=== PATIENT | female | born 1950 | race Caucasian/White ===

== ENCOUNTER → 2016-06-25 | Outpatient (CLI) | payer OTHER ==
--- NOTE | 2016-06-26 14:22 | DEXA ---
AP SPINE L1 - L4 1.022 -1.4 0.0 LT FEMUR TOTAL 0.928 -0.6 0.4 RT FEMUR TOTAL 0.911 -0.8 0.3 TOTAL BODY TOTAL OTHER DUAL FEMUR FRAX* ASSESSMENT Risk factors: History of adult fracture. 10 year probability of fracture Major osteoporotic fracture 17.4 % Hip fracture 2.7 % COMMENTS: There is low bone density of the spine and hips. FOLLOW-UP: Recommendation for the next bone density exam: 2 years. RUSSELLD
== END ==
LOC: M WHC 11:10
PROVIDERS: ATTEND Family Medicine
DX: Z13.820 Encounter for screening for osteoporosis (principal)

== ENCOUNTER → 2018-08-26 | Outpatient (REF) | payer OTHER ==
[2018-08-26 12:53] LABS: BASO # 0.1 10^3/uL (0.0-0.2); BASO % 0.7 % (0.0-1.0); EOS # 0.4 10^3/uL (0.0-0.50); EOS % 4.1 % (0.0-3.0); HEMATOCRIT 43.2 % (36.0-47.0); HEMOGLOBIN 14.4 g/dl (12.0-15.5); LYMPH # 2.6 10^3/uL (1.5-4.5); LYMPH % 29.8 % (24.0-44.0); MEAN CORPUSCULAR HEMOGLOBIN 30.5 pg (27.0-33.0); MEAN CORPUSCULAR HGB CONC 33.3 g/dl (32.0-36.5); MEAN CORPUSCULAR VOLUME 91.5 fl (80.0-96.0); MONO # 0.5 10^3/uL (0.0-0.8); MONO % 6.1 % (0.0-5.0); NEUTROPHILS # 5.2 10^3/uL (1.8-7.7); PLATELET COUNT, AUTOMATED 307 10^3/uL (150-450); RED BLOOD COUNT 4.72 10^6/uL (4.00-5.40); WHITE BLOOD COUNT 8.8 10^3/uL (4.0-10.0)
[2018-08-26 13:19] LABS: ALBUMIN 4.2 GM/DL (3.2-5.2); ALT/SGPT 17 U/L (12-78); BILIRUBIN,TOTAL 0.6 MG/DL (0.2-1.0); BLOOD UREA NITROGEN 23 MG/DL (7-18); CALCIUM LEVEL 9.2 MG/DL (8.8-10.2); CARBON DIOXIDE LEVEL 31 MEQ/L (21-32); CHLORIDE LEVEL 106 MEQ/L (98-107); CHOLESTEROL LEVEL 263 MG/DL (<200); CHOLESTEROL RISK RATIO 4.614 (<5); CREATININE FOR GFR 0.56 MG/DL (0.55-1.30); FREE T4 1.05 NG/DL (0.76-1.46); GLOMERULAR FILTRATION RATE > 60.0 (>45); GLUCOSE, FASTING 92 MG/DL (70-100); HDL CHOLESTEROL 57 MG/DL (>40); LDL CHOLESTEROL 187 MG/DL (<100); NON-HDL-C 206 MG/DL; SODIUM LEVEL 141 MEQ/L (136-145); THYROID STIMULATING HORMONE 0.799 uIU/ML (0.358-3.740); TOTAL PROTEIN 7.3 GM/DL (6.4-8.2); TRIGLYCERIDES LEVEL 95 MG/DL (<150)
[2018-08-26 13:26] LABS: TOTAL 25(OH) VITAMIN D 30.4 NG/ML (30.0-100.0)
== END ==
LOC: M SFHCADAM 10:29
PROVIDERS: ATTEND Physician Assistant Medical
DX: Z00.00 Encounter for general adult medical examination without abnormal findings (principal); Z13.220 Encounter for screening for lipoid disorders; Z13.0 Encounter for screening for diseases of the blood and blood-forming organs and certain disorders involving the immune mechanism

== ENCOUNTER → 2018-09-09 | Outpatient (CLI) | payer OTHER ==
--- NOTE | 2018-09-09 11:03 | REPMRS ---
Patient History The patient states she has not had a clinical breast exam in over a year. Patient is postmenopausal. Family history of breast cancer at age 62 in mother, breast cancer at age 32 in sister, breast cancer at age 38 in sister, breast cancer at age 38 in sister. No Hormone Replacement Therapy 3D TOMOSYNTHESIS WAS PERFORMED. Digital Woman Screen Mammo: September 09, 2018 - Exam #: [id number] Bilateral CC and MLO view(s) were taken. Technologist: Heidi Isaacs, Technologist Prior study comparison: 2017, bilateral digital mammo screening bilat, performed at [facility]. FINDINGS: The breast tissue is heterogeneously dense. This may lower the sensitivity of mammography. There has been no change in the appearance of the mammogram from the prior studies. There is a moderate amount of residual fibroglandular tissue which is fairly symmetric. There is no interval development of dominant mass, areas of architectural distortion, or clustered microcalcification typical of malignancy. Assessment: BI-RADS/ACR category 1 mammogram. Negative Mammogram. Recommendation Routine screening mammogram in 1 year (for women over age 40). This mammogram was interpreted with the aid of an FDA-approved computer-aided dectection system. Electronically Signed By: Gustavo Marsh MD 09/09/18 [id number]
--- NOTE | 2018-09-13 14:50 | DEXA ---
AP SPINE L1 - L4 1.000 -1.6 0.1 LT FEMUR TOTAL 0.913 -0.7 0.6 LT NECK 0.757 -2.0 -0.4 RT FEMUR TOTAL 0.908 -0.8 0.5 RT NECK 0.766 -2.0 -0.4 TOTAL BODY TOTAL OTHER COMMENTS: There is low bone density of the spine and hips. The density of the spine has decreased 2.2% since 06/25/2016. The density of the left hip has decreased 1.6% since 06/25/2016. The density of the right hip has decreased 0.3% since 06/25/2016. The decreased density of the spine does represent a significant change. The decreased density of the left hip does not represent a significant change. The decreased density of the right hip does not represent significant change. FOLLOW-UP: Recommendation for the next bone density exam: 2 years. AMEE
== END ==
LOC: M WHC 08:35
PROVIDERS: ATTEND Physician Assistant Medical
DX: Z12.31 Encounter for screening mammogram for malignant neoplasm of breast (principal); Z78.0 Asymptomatic menopausal state; Z80.3 Family history of malignant neoplasm of breast; M85.851 Other specified disorders of bone density and structure, right thigh; M85.852 Other specified disorders of bone density and structure, left thigh; M85.88 Other specified disorders of bone density and structure, other site

== ENCOUNTER → 2018-09-21 | Outpatient (CLI) | payer OTHER ==
--- NOTE | 2018-09-21 10:15 | REP ---
LUMBAR SPINE, SEVEN VIEWS: HISTORY: Acute back pain. There is no acute fracture or subluxation. The lumbar intervertebral discs are decreased in height consistent with disc degeneration. Osteophytes are present throughout the lumbar spine. There is narrowing of the L5-S1 facet joints. IMPRESSION: Degenerative change as described above. Electronically Signed by Diaz Freedman MD 09/21/2018 10:32 A
== END ==
LOC: M ADAMS 09:12
PROVIDERS: ATTEND Physician Assistant Medical
DX: M54.5 Low back pain (principal)

== ENCOUNTER → 2019-02-04 | Outpatient (CLI) | payer OTHER ==
[2019-02-04 13:18] LABS: ALBUMIN 3.8 GM/DL (3.2-5.2); ALT/SGPT 16 U/L (12-78); BILIRUBIN,TOTAL 0.5 MG/DL (0.2-1.0); BLOOD UREA NITROGEN 16 MG/DL (7-18); CALCIUM LEVEL 9.2 MG/DL (8.8-10.2); CARBON DIOXIDE LEVEL 27 MEQ/L (21-32); CHLORIDE LEVEL 106 MEQ/L (98-107); CHOLESTEROL LEVEL 181 MG/DL (<200); CHOLESTEROL RISK RATIO 3.415 (<5); CREATININE FOR GFR 0.63 MG/DL (0.55-1.30); GLOMERULAR FILTRATION RATE > 60.0 (>45); GLUCOSE, FASTING 99 MG/DL (70-100); HDL CHOLESTEROL 53 MG/DL (>40); LDL CHOLESTEROL 112 MG/DL (<100); NON-HDL-C 128 MG/DL; POTASSIUM SERUM 4.1 MEQ/L (3.5-5.1); SODIUM LEVEL 144 MEQ/L (136-145); TRIGLYCERIDES LEVEL 80 MG/DL (<150)
== END ==
LOC: M SMT 08:54
PROVIDERS: ATTEND Physician Assistant Medical
DX: E78.2 Mixed hyperlipidemia (principal)

== ENCOUNTER → 2019-09-14 | Outpatient (CLI) | payer OTHER ==
[2019-09-14 14:17] LABS: ALBUMIN 3.9 GM/DL (3.2-5.2); ALT/SGPT 28 U/L (12-78); BILIRUBIN,TOTAL 0.3 MG/DL (0.2-1.0); BLOOD UREA NITROGEN 16 MG/DL (7-18); CALCIUM LEVEL 9.1 MG/DL (8.8-10.2); CARBON DIOXIDE LEVEL 29 MEQ/L (21-32); CHLORIDE LEVEL 106 MEQ/L (98-107); CHOLESTEROL LEVEL 201 MG/DL (<200); CHOLESTEROL RISK RATIO 4.102 (<5); CREATININE FOR GFR 0.58 MG/DL (0.55-1.30); GLOMERULAR FILTRATION RATE > 60.0 (>45); GLUCOSE, FASTING 94 MG/DL (70-100); HDL CHOLESTEROL 49 MG/DL (>40); LDL CHOLESTEROL 98 MG/DL (<100); NON-HDL-C 152 MG/DL; POTASSIUM SERUM 4.7 MEQ/L (3.5-5.1); SODIUM LEVEL 141 MEQ/L (136-145); TOTAL PROTEIN 7.2 GM/DL (6.4-8.2); TRIGLYCERIDES LEVEL 270 MG/DL (<150)
== END ==
LOC: M PLALAB 10:38
PROVIDERS: ATTEND Physician Assistant Medical
DX: E78.2 Mixed hyperlipidemia (principal)

== ENCOUNTER → 2019-11-17 | Outpatient (CLI) | payer OTHER ==
--- NOTE | 2019-11-17 10:05 | REP ---
BILATERAL MAMMOGRAM WITH 3D TOMOSYNTHESIS: Family history of breast cancer in mother at age 62, sister with breast cancer at age 32, sister with breast cancer at age 38, a sister with breast cancer at age 38. [facility] lifetime risk of breast cancer 10.6%. Volpara density B. COMPARISON: 09/09/2018 as well as other prior exams. MLO and CC views of the bilateral breasts are performed with 3D tomosynthesis. There is moderate fibroglandular tissue bilaterally. Questionable 3-4 mm nodular opacity is seen in the anterolateral right breast. This is best appreciated on the tomographic images. Otherwise no definite nodule or architectural distortion is seen bilaterally. No clustered microcalcifications are seen bilaterally. IMPRESSION: BIRADS 0: BI-RADS/ACR category 0 mammogram, Incomplete: Need additional imaging evaluation and/or prior mammograms for comparison. ACR 0 incomplete. Possible 3-4 mm nodular opacity anterolateral right breast. Recommend spot compression views and ultrasound to further evaluate. This mammogram was interpreted with the aid of an FDA-approved computer-aided detection system. A. Negative x-ray reports should not delay biopsy if a dominant or clinically suspicious mass is present. B. Four to eight percent of cancers are not identified by x-ray. C. Adenosis and dense breasts may obscure an underlying neoplasm. The patient states that she or he has not had a clinical breast exam in over a year. The patient letter being requested is M0.
== END ==
LOC: M WHC 08:24
PROVIDERS: ATTEND Physician Assistant Medical
DX: Z12.31 Encounter for screening mammogram for malignant neoplasm of breast (principal); Z80.3 Family history of malignant neoplasm of breast; R92.8 Other abnormal and inconclusive findings on diagnostic imaging of breast

== ENCOUNTER → 2019-12-05 | Outpatient (CLI) | payer OTHER ==
--- NOTE | 2019-12-05 14:09 | REP ---
DIGITAL DIAGNOSTIC UNILATERAL RIGHT BREAST MAMMOGRAPHY WITH CAD AND FOCUSED RIGHT BREAST SONOGRAPHY: HISTORY: Screening mammography November 17, 2019 was BI-RADS category 0 because of a possible 3 mm neodensity. Diagnostic imaging was recommended. Comparison studies include September 09, 2018 and June 05, 2016. MAMMOGRAPHIC FINDINGS: Today's magnified craniocaudal view again demonstrates a well-circumscribed nodular density anteriorly and laterally where the screening study showed a small nodule. This is not seen, however, with confidence on either the true MLO or the MLO mag views. Scattered fibroglandular elements are again seen. SONOGRAPHIC FINDINGS: Heterogeneous fibroglandular background echotexture is seen. In the 9-o'clock position in the right breast, 2 cm from nipple, there is a 3 mm cyst. No suspicious sonographic finding. IMPRESSION: BIRADS 2: BI-RADS/ACR category 2 mammogram. Benign Findings. BI-RADS category 2 benign findings. Repeat screening mammography recommended in 1 year. This mammogram was interpreted with the aid of an FDA-approved computer-aided detection system. The patient letter being requested is M#1. Electronically Signed by Abelardo Marlow MD 12/05/2019 02:47 P
== END ==
LOC: M WHC 10:50
PROVIDERS: ATTEND Physician Assistant Medical
DX: Z12.39 Encounter for other screening for malignant neoplasm of breast (principal)
CPT/HCPCS: 76642; 77065; G0279

== ENCOUNTER 2020-08-05 20:51 | Observation (INO) | payer OTHER ==
[~2020-08-05] VITALS: Ht 152.4 cm; Wt 72.8 kg
[2020-08-05] MEDS ORDERED: MORPHINE 2 MG/ML 1ML VIAL (J2270) IV ONE (21:35)
[2020-08-05] MEDS ORDERED: ONDANSETRON 4MG/2ML VIAL IV ONE (21:35)
[2020-08-05 22:27] LABS: BASO % 0.3 % (0.0-1.0); EOS # 0.3 10^3/uL (0.0-0.5); EOS % 2.1 % (0.0-3.0); HEMATOCRIT 42.2 % (36.0-47.0); HEMOGLOBIN 13.8 g/dl (12.0-15.5); LYMPH # 1.7 10^3/uL (1.5-5.0); LYMPH % 13.5 % (24.0-44.0); MEAN CORPUSCULAR HEMOGLOBIN 29.6 pg (27.0-33.0); MEAN CORPUSCULAR HGB CONC 32.7 g/dl (32.0-36.5); MEAN CORPUSCULAR VOLUME 90.6 fl (80.0-96.0); MONO # 0.5 10^3/uL (0.0-0.8); MONO % 3.8 % (2.0-8.0); NEUTROPHILS # 10.1 10^3/uL (1.5-8.5); NEUTROPHILS % 79.8 % (36.0-66.0); PLATELET COUNT, AUTOMATED 274 10^3/uL (150-450); RED BLOOD COUNT 4.66 10^6/uL (4.00-5.40); WHITE BLOOD COUNT 12.6 10^3/uL (4.0-10.0)
[2020-08-05 22:56] LABS: ALT/SGPT 22 U/L (12-78); BILIRUBIN,DIRECT < 0.1 MG/DL (0.0-0.2); BILIRUBIN,TOTAL 0.2 MG/DL (0.2-1.0); CK-MB VALUE MASS < 1.0 NG/ML (<3.6); CPK CREATINE PHOSPHOKINASE 61 U/L (26-192); LIPASE 145 U/L (73-393); MB/CK RELATIVE INDEX 1.64 (< OR =4); TOTAL PROTEIN 7.4 GM/DL (6.4-8.2); TROPONIN I < 0.02 NG/ML (< 0.10)
--- NOTE | 2020-08-05 23:03 | REPVR ---
PROCEDURE INFORMATION: Exam: US Abdomen, Limited; Right Upper Quadrant Exam date and time: 08/05/20 (9:48pm) Age: 69 years old Clinical indication: Epigastric pain TECHNIQUE: Imaging protocol: US abdomen. Real time ultrasound with image documentation. Limited examination focused on the right upper quadrant. COMPARISON: No relevant prior studies available FINDINGS: The liver is normal in size (17.0 cm length), with fatty infiltration (echogenic texture). Thickened gallbladder wall (6 mm thickness). Echogenic gallstone (2.2 cm size). Possible focal adenomyomatosis at the anterior gallbladder wall. No pericholecystic fluid is appreciated. The sonographic Sigala's sign is reported to be (+). The CBD is not dilated (3.2 mm diameter). The pancreas appears unremarkable. The right kidney measures 9.7 cm in length, with no hydronephrosis appreciated. Right midpole renal cyst (2.7 x 2.7 x 3.8 cm size) (3.4 cm avg. size). No ascites is seen. IMPRESSION: Possible acute cholecystitis. Needs correlation. Large echogenic gallstone (2.2 cm size). Thickened gallbladder wall. The sonographic Sigala's sign is reported to be (+). No biliary dilatation. Possible focal adenomyomatosis (benign) at the anterior gallbladder wall. Electronically signed by: Roxana Camilo On 08/05/2020 23:03:28 PM
[2020-08-05] MEDS ORDERED: ISOVUE-370 76% 100ML VIAL As Ordered ONE (23:04)
--- NOTE | 2020-08-06 | REPVR ---
PROCEDURE INFORMATION: Exam: CT Chest With Contrast; Diagnostic Exam date and time: 08/05/2020 11:11 PM Age: 69 years old Clinical indication: Pain; Other: Left scapular; Additional info: Epigastric pain, L scapular pain TECHNIQUE: Imaging protocol: Diagnostic computed tomography of the chest with contrast. Radiation optimization: All CT scans at this facility use at least one of these dose optimization techniques: automated exposure control; mA and/or kV adjustment per patient size (includes targeted exams where dose is matched to clinical indication); or iterative reconstruction. Contrast material: ISOVUE 370; Contrast volume: 100 ml; Contrast route: INTRAVENOUS (IV); COMPARISON: No relevant prior studies available. FINDINGS: Lungs: There is mild atelectasis or infiltrate left mid lung field. Pleural spaces: There is no evidence of pneumothorax and no evidence of pleural effusion. Heart: The heart is normal in size and there is no pericardial effusion. Pulmonary arteries: There is opacification of the pulmonary arteries with no evidence of pulmonary embolus. Aorta: Unremarkable. No aortic aneurysm. Lymph nodes: Unremarkable. No enlarged lymph nodes. Bones/joints: There is a large posterior disc osteophyte complex L1-L2 causing severe impression on the thecal sac. Soft tissues: Unremarkable. IMPRESSION: 1. No evidence of pulmonary embolus. 2. Mild atelectasis or infiltrate left mid lung field. 3. Large posterior disc osteophyte L1-L2 causing severe impression on the thecal sac. Electronically signed by: Carlos Langford On 08/06/2020 00:00:41 AM
--- NOTE | 2020-08-06 00:16 | REPVR ---
PROCEDURE INFORMATION: Exam: CT Abdomen And Pelvis With Contrast Exam date and time: 08/05/2020 11:21 PM Age: 69 years old Clinical indication: Abdominal pain; Epigastric; Additional info: Epigastric pain, L scapular pain TECHNIQUE: Imaging protocol: Computed tomography of the abdomen and pelvis with contrast. Radiation optimization: All CT scans at this facility use at least one of these dose optimization techniques: automated exposure control; mA and/or kV adjustment per patient size (includes targeted exams where dose is matched to clinical indication); or iterative reconstruction. Contrast material: ISOVUE 370; Contrast volume: 100 ml; Contrast route: INTRAVENOUS (IV); COMPARISON: GALLBLADDER US 08/05/2020 9:47 PM FINDINGS: Liver: Normal appearing liver. Gallbladder and bile ducts: There is a 2.5 cm calcified stone at the neck of the gallbladder. There are multiple tiny cystic areas of the distal aspect of the gallbladder possibly adenomyomatosis. Pancreas: Normal pancreas. Spleen: Normal appearing spleen. Adrenal glands: Small low-density nodule left adrenal gland probably benign. Kidneys and ureters: There is enhancement of both kidneys. There is also a moderate-sized exophytic cyst of the right kidney. There is no evidence of hydronephrosis or obstruction of the right or left ureter. Stomach and bowel: The cecum is in the right lower quadrant and there is no evidence of inflammation associated with these cecum. Intraperitoneal space: There is no evidence of pneumoperitoneum. There is no evidence of free fluid. Vasculature: There is opacification of the celiac artery. There is opacification of the SMA however there is calcification and narrowing at the origin of the SMA. Urinary bladder: Normal urinary bladder. Reproductive: Normal size uterus. Bones/joints: Large posterior disc osteophyte complex L1-L2 causing severe impression on the thecal sac. Soft tissues: Unremarkable. IMPRESSION: 2.5 cm large calcified gallstone within the neck of the gallbladder. Conglomerate of small cystic areas at the distal most aspect of the gallbladder may be adenomyomatosis or small cysts within the gallbladder wall. If there is pain in this area or concern a HIDA scan might be considered. Large posterior disc osteophyte complex L1-L2 causing severe impression on the thecal sac. Electronically signed by: Carlos Langford On 08/06/2020 00:16:39 AM
[2020-08-06] MEDS ORDERED: MORPHINE 2 MG/ML 1ML VIAL (J2270) IV PRN ×2 (00:30)
[2020-08-06] MEDS ORDERED: ONDANSETRON 4MG/2ML VIAL IV PRN (00:30)
[2020-08-06] MEDS ORDERED: THERTAB52 PO (00:46)
[2020-08-06] MEDS ORDERED: SIMV20TA22 PO (00:46)
[2020-08-06] MEDS ORDERED: OMEG10002 PO (00:46)
[2020-08-06] MEDS: NS 1,000 ML IV SCH ×2 (01:19→08:24)
[2020-08-06] MEDS: KETOROLAC 30 MG/ML 1ML VIAL IV SCH ×3 (01:20→14:00)
[2020-08-06] MEDS: PIPERACILLIN/TAZOBACTAM SOD 3.375 GM in D5W MINI-BAG PLUS 50 ML IV SCH ×3 (01:22→14:00)
[2020-08-06 01:46] LABS: RSV AMPLIFICATION NEGATIVE (NEGATIVE)
[2020-08-06 03:15] VITALS: BP 122/69
--- NOTE | 2020-08-06 06:32 | ECGEPIP ---
[facility] - ED Test Date: 2020-08-05 Pat Name: LEONORA ROGER Department: Room: - Gender: Female Wrong Address Clerk: SB : 1950 Requested By: TJ Philippe PA-C Order Number: [id number] Reading MD: Alex Loyd Measurements Intervals [place] Rate: 70 P: 15 WI: 146 QRS: 2 QRSD: 80 T: 12 QT: 410 QTc: 442 Interpretive Statements Normal sinus rhythm Delayed R wave progression NONSPECIFIC ST T WAVE CHANGES NO PRIOR ECG FOR COMPARISON Electronically Signed on 08-06-2020 6:31:55 EST by Alex Loyd
[2020-08-06] MEDS ORDERED: PANTOPRAZOLE 40MG VIAL (C9113 PER 1) IV SCH (09:00)
[2020-08-06 09:54] LABS: HEMATOCRIT 38.3 % (36.0-47.0); HEMOGLOBIN 12.4 g/dl (12.0-15.5); MEAN CORPUSCULAR HEMOGLOBIN 29.8 pg (27.0-33.0); MEAN CORPUSCULAR HGB CONC 32.4 g/dl (32.0-36.5); MEAN CORPUSCULAR VOLUME 92.1 fl (80.0-96.0); PLATELET COUNT, AUTOMATED 245 10^3/uL (150-450); RED BLOOD COUNT 4.16 10^6/uL (4.00-5.40); WHITE BLOOD COUNT 9.7 10^3/uL (4.0-10.0)
[2020-08-06 10:36] LABS: ALBUMIN 3.3 GM/DL (3.2-5.2); ALT/SGPT 18 U/L (12-78); BILIRUBIN,TOTAL 0.3 MG/DL (0.2-1.0); BLOOD UREA NITROGEN 17 MG/DL (7-18); CALCIUM LEVEL 8.5 MG/DL (8.8-10.2); CARBON DIOXIDE LEVEL 27 MEQ/L (21-32); CHLORIDE LEVEL 110 MEQ/L (98-107); CREATININE FOR GFR 0.58 MG/DL (0.55-1.30); GLOMERULAR FILTRATION RATE > 60.0 (>45); GLUCOSE, FASTING 91 MG/DL (70-100); POTASSIUM SERUM 3.6 MEQ/L (3.5-5.1); SODIUM LEVEL 144 MEQ/L (136-145)
--- NOTE | 2020-08-06 11:16 | HPEPDOC ---
General Surgery H&P Date of Admission Aug 06, 2020 History and Physical General Surgery Dr Mathias. HISTORY OF PRESENT ILLNESS: The patient is a 69-year-old female who presented to the emergency department at approximately 205008/05/20. The patient reported abdominal pain began after eating dinner and gradually had been worsening. She described this as crampy pain in the right upper abdomen. She had nausea and vomiting however no diarrhea. No fevers or chills. Gallbladder ultrasound indicated possible acute cholecystitis with large ech ogenic gallstone, thickened gallbladder wall, common bile duct was not dilated. CT abdomen/pelvis indicated 2.5 cm calcified stone at the neck of the gallbladder with small cystic areas. Observation admission was arranged overnight for acute cholecystitis. ALLERGIES: Please see below. HOME MEDICATIONS: Please see below. PAST MEDICAL HISTORY: Dyslipidemia Obesity. BMI 31.3. PAST SURGICAL HISTORY: Denies PERSONAL/SOCIAL HISTORY: Former smoker Family history Father , lung cancer. Mother , breast cancer and dementia. History of familial tremor. REVIEW OF SYSTEMS: As noted in HPI otherwise 10 point review of systems unremarkable. PHYSICAL EXAMINATION: VITAL SIGNS: Please see below. GENERAL APPEARANCE: Awake, alert, oriented. Truly resting in bed. HEENT: Normocephalic, atraumatic. [place] palpebral conjunctivae. Anicteric sclerae. Lips moist CHEST: Normal respiratory motion/effort. NECK: Supple. No thyromegaly. LUNGS: Lung sounds are clear to auscultation bilaterally. No wheezing appreciated. HEART: Heart rate and rhythm are regular with no murmurs. ABDOMEN: Abdomen is obese, soft, slightly rounded. Nondistended. The pt has mild tenderness in the RUQ, no rebound or guarding. No grimacing with palpation. No rebound tenderness. No masses appreciated. SKIN: Warm, moist. EXTREMITIES: Well perfused, No edema.. LABORATORY DATA: Please see below. MICROBIOLOGY: Please see below. IMAGING: PROCEDURE INFORMATION: Exam: US Abdomen, Limited; Right Upper Quadrant Exam date and time: 08/05/20 (9:48pm) FINDINGS: The liver is normal in size (17.0 cm length), with fatty infiltration (echogenic texture). Thickened gallbladder wall (6 mm thickness). Echogenic gallstone (2.2 cm size). Possible focal adenomyomatosis at the anterior gallbladder wall. No pericholecystic fluid is appreciated. The sonographic Sigala's sign is reported to be (+). The CBD is not dilated (3.2 mm diameter). The pancreas appears unremarkable. The right kidney measures 9.7 cm in length, with no hydronephrosis appreciated. Right midpole renal cyst (2.7 x 2.7 x 3.8 cm size) (3.4 cm avg. size). No ascites is seen. IMPRESSION: Possible acute cholecystitis. Needs correlation. Large echogenic gallstone (2.2 cm size). Thickened gallbladder wall. The sonographic Sigala's sign is reported to be (+). No biliary dilatation. Possible focal adenomyomatosis (benign) at the anterior gallbladder wall. Electronically signed by: Roxana Camilo On 08/05/2020 23:03:[address] A/P IMPRESSION: 2.5 cm large calcified gallstone within the neck of the gallbladder. Conglomerate of small cystic areas at the distal most aspect of the gallbladder may be adenomyomatosis or small cysts within the gallbladder wall. If there is pain in this area or concern a HIDA scan might be considered. Large posterior disc osteophyte complex L1-L2 causing severe impression on the thecal sac. Electronically signed by: Carlos Langford On 08/06/2020 00:16:39 AM IMPRESSION AND PLAN: The patient is a 69-year-old female who was admitted overnight with acute cholecystitis. Resolving cholecystitis. The patient was admitted to observation overnight. Nothing by mouth, IV Zosyn. The patient received 1 dose of morphine in the emergency department but has not used any further. Used one dose of Toradol this morning. This morning, she states she is feeling much better. She has some mild tenderness in the right upper quadrant but mostly the area just feels sore. Denies nausea or vomiting. Patient is afebrile. CBC this a.m. indicates WBC 9.7 which is decreased from 12.6. Plan is to try clear liquids for breakfast and progress diet at lunch to low- fat. If she tolerates lunch, tentative plan to discharge home with oral antibiotics Augmentin 500 mg by mouth 3 times a day. The patient can continue to use Tylenol or Advil as needed for pain. Plan for outpatient follow-up with Dr. Mathias next week to consider outpatient laparoscopic cholecystectomy. Vital Signs Vital Signs Date Time Temp Pulse Resp B/P (MAP) Pulse Ox O2 Delivery O2 Flow Rate FiO2 08/06/20 03:15 98.0 68 18 122/69 (86) 96 Room Air I&Os I&O- Last 24 Hours up to 6 AM 08/06/20 06:00 Intake Total 230 ml Balance 230 ml Laboratory Data Labs 24H Laboratory Tests 2 08/05/20 22:20: Immature Granulocyte % (Auto) 0.5, Neutrophils (%) (Auto) 79.8H, Lymphocytes (%) (Auto) 13.5L, Monocytes (%) (Auto) 3.8, Eosinophils (%) (Auto) 2.1, Basophils (%) (Auto) 0.3, Neutrophils # (Auto) 10.1H, Lymphocytes # (Auto) 1.7, Monocytes # (Auto) 0.5, Eosinophils # (Auto) 0.3, Basophils # (Auto) 0.0, Nucleated Red Blood Cells % (auto) 0.0, Total Bilirubin 0.2, Direct Bilirubin < 0.1, Aspartate Amino Transf (AST/SGOT) 14, Alanine Aminotransferase (ALT/SGPT) 22, Alkaline Phosphatase 91, Total Creatine Kinase 61, Creatine Kinase MB < 1.0, Creatine Kin ase MB Relative Index 1.64, Troponin I < 0.02, Total Protein 7.4, Albumin 4.0, Albumin/Globulin Ratio 1.2, Lipase 145 08/05/20 22:27: POC Glucose (Misc Panel) 140H, POC Sodium (Misc Panel) 141, POC Potassium (Misc Panel) 3.6, POC Chloride (Misc Panel) 103, POC Total CO2 (Misc Panel) 29.0H, POC Blood Urea Nitrogen (Misc Panel 19, POC Ionized Calcium (Misc Panel) 4.5, POC Creatinine (Misc Panel) 0.6, POC Hematocrit (Misc Panel) 41.0 08/06/20 00:34: Coronavirus (COVID-19)(PCR) NEGATIVE, Influenza Type A (RT-PCR) NEGATIVE, Influenza Type B (RT-PCR) NEGATIVE, Respiratory Syncytial Virus (PCR) NEGATIVE 08/06/20 08:56: Nucleated Red Blood Cells % (auto) 0.0, Total Bilirubin 0.3, Aspartate Amino Transf (AST/SGOT) 8, Alanine Aminotransferase (ALT/SGPT) 18, Alkaline Phosphatase 73, Total Protein 6.0L, Albumin 3.3, Albumin/Globulin Ratio 1.2, Anion Gap 7L, Glomerular Filtration Rate > 60.0, Calcium Level 8.5L CBC/BMP Laboratory Tests 08/05/20 22:20 08/06/20 08:56 Home Medications Scheduled Multivitamin,Therapeutic (Thera-Tabs) 1 Each Tablet, 1 TAB PO DAILY, (Reported) Granite-3/Dha/Epa/Fish Oil (Fish Oil 1,000 mg Softgel) 1 Each Capsule, 1 CAP PO DAILY, (Reported) Simvastatin (Simvastatin) 20 Mg Tablet, 20 MG PO QHS, (Reported) Allergies Coded Allergies: No Known Allergies (Unverified , 06/14/15) A-FIB/CHADSVASC A-FIB History Current/History of A-Fib/PAF?: No Oliva Rincon Aug 06, 2020 11:16
[2020-08-06] MEDS ORDERED: AUGM500T34 PO (13:41)
[2020-08-06 14:00] VITALS: BP 145/65
== END 2020-08-06 14:50 | disposition home or self-care (01) ==
LOC: M ED 20:51 → M ED INP 20:52 → ENRESERV 08-06 02:30 → M MS5PR 08-06 03:10
PROVIDERS: ADMIT Surgery; ATTEND Surgery
DX: K81.0 Acute cholecystitis (principal); E78.49 Other hyperlipidemia; K21.9 Gastro-esophageal reflux disease without esophagitis; Z79.899 Other long term (current) drug therapy
CPT/HCPCS: 36415; 71260; 74177; 76705; 80047; 80053; 80076; 82550; 82553; 83690; 84484; 85025; 85027; 87631; 93005; 96361; 96365; 96366; 96375; 99284; C9113; J1885; J2270; J2405; J2543; Q9967

== ENCOUNTER → 2020-09-06 | Outpatient (CLI) | payer OTHER ==
[~2020-09-06] MED LIST: AUGM500T34 PO; OMEG10002 PO; SIMV20TA22 PO; THERTAB52 PO
== END ==
LOC: M LABSMTC 10:06
PROVIDERS: ATTEND Anesthesiology
DX: Z01.812 Encounter for preprocedural laboratory examination (principal); Z20.822 Contact with and (suspected) exposure to COVID-19

== ENCOUNTER 2020-09-11 10:37 | Day surgery (SDC) | payer OTHER ==
[~2020-09-11] VITALS: Ht 152.4 cm; Wt 68.2 kg
[~2020-09-11 10:37] MED LIST changes: +LR 1,000 ML IV ONE; +ceFAZolin SOD 1 GM in D5W MINI-BAG PLUS 50 ML IV ONE
[2020-09-11] MEDS ORDERED: MIDAZOLAM INJ 2MG/2ML VIAL (J2250 PER 1MG) As Ordered ONE (10:41)
[2020-09-11] MEDS ORDERED: dexameTHASONE 4 MG/ML 1ML VIAL (J1100 PER 1MG) As Ordered ONE (10:41)
[2020-09-11] MEDS ORDERED: ACETAMINOPHEN 1000MG 100ML IV BTL (OFIRMEV) (J0131 PER 10MG) As Ordered ONE (10:41)
[2020-09-11] MEDS ORDERED: fentaNYL 100 MCG/2 ML INJECTION (J3010) As Ordered ONE (10:41)
[2020-09-11] MEDS ORDERED: ONDANSETRON 4MG/2ML VIAL As Ordered ONE ×2 (10:41→15:22)
[2020-09-11] MEDS ORDERED: KETOROLAC 60MG 2ML VIAL As Ordered ONE (10:41)
[2020-09-11] MEDS ORDERED: ROCURONIUM BROMIDE 50 MG/5 ML VIAL As Ordered ONE (10:41)
[2020-09-11] MEDS ORDERED: propofoL 200 MG/20 ML VIAL As Ordered ONE (10:41)
[2020-09-11] MEDS ORDERED: LIDOCAINE 2% 100MG/5ML SDV (FOR ANES.) As Ordered ONE (10:41)
[2020-09-11] MEDS ORDERED: SUGAMMADEX SODIUM 500 MG/5 ML VIAL (BRIDION) As Ordered ONE (10:42)
[2020-09-11] MEDS ORDERED: BUPIVACAINE/EPIN 0.25% 30 ML VIAL As Ordered ONE (10:53)
[2020-09-11] MEDS ORDERED: ePHEDrine SULFATE 25 MG/5 ML(5MG/ML) SYRINGE As Ordered ONE (12:06)
[2020-09-11] MEDS ORDERED: HYDROmorphone HCL 2 MG/ML 1ML VIAL (J1170) As Ordered ONE (12:16)
[2020-09-11] MEDS ORDERED: LABETALOL 100MG/20ML VIAL As Ordered ONE (12:40)
[2020-09-11] MEDS ORDERED: LR 1,000 ML IV SCH (13:30)
[2020-09-11] MEDS ORDERED: NORCO, ANEXSIA 5/325MG TABLET (HYDROcodone/ACETAMINOPHEN) PO PRN (13:30)
[2020-09-11] MEDS ORDERED: NS 1,000 ML IV SCH (13:30)
[2020-09-11] MEDS ORDERED: fentaNYL 100 MCG/2 ML INJECTION (J3010) IV PRN (13:30)
[2020-09-11] MEDS ORDERED: ONDANSETRON 4MG/2ML VIAL IV PRN (13:30)
[2020-09-11] MEDS ORDERED: oxyCODONE 5MG TAB PO PRN (13:30)
[2020-09-11] MEDS: NALOXONE INJ 0.4MG/1ML VIAL (J2310 PER 1MG) IV PRN ×2 (14:34→14:46)
[2020-09-11] MEDS ORDERED: NALOXONE INJ 0.4MG/1ML VIAL (J2310 PER 1MG) As Ordered ONE (15:22)
[2020-09-11 15:46] VITALS: BP 164/72
== END 2020-09-11 16:18 | disposition home or self-care (01) ==
LOC: M SDC 10:37
PROVIDERS: ATTEND Surgery
DX: K81.0 Acute cholecystitis (principal); E78.5 Hyperlipidemia, unspecified; K21.9 Gastro-esophageal reflux disease without esophagitis; Z79.899 Other long term (current) drug therapy
CPT/HCPCS: 47562; 88304; J0131; J0690; J1100; J1170; J1885; J2250; J2310; J2405; J3010

== ENCOUNTER → 2021-09-09 | Outpatient (REF) | payer MEDICARE ==
[~2021-09-09] MED LIST changes: -LR 1,000 ML IV ONE; -ceFAZolin SOD 1 GM in D5W MINI-BAG PLUS 50 ML IV ONE
[2021-09-09 13:07] LABS: APPEARANCE, URINE CLEAR (CLEAR); BACTERIA, URINE AUTO NEGATIVE (NEGATIVE); BILIRUBIN, URINE AUTO NEGATIVE (NEGATIVE); BLOOD, URINE BLOOD 1+ (NEGATIVE); COLOR, URINE STRAW (YELLOW); GLUCOSE, URINE (UA) AUTO NEGATIVE (NEGATIVE); KETONE, URINE AUTO NEGATIVE (NEGATIVE); LEUKOCYTE ESTERASE, URINE AUTO NEGATIVE (NEGATIVE); NITRITE, URINE AUTO NEGATIVE (NEGATIVE); PROTEIN, URINE AUTO NEGATIVE (NEGATIVE); RBC, URINE AUTO 0 /HPF (0-3); SPECIFIC GRAVITY URINE AUTO 1.004 (1.002-1.035); SQUAMOUS EPITHELIAL CELL UR AU 0 /HPF (0-6); UROBILINOGEN, URINE AUTO 0.2 mg/dL (0.0-2.0); WBC, URINE AUTO 0 /HPF (0-3)
[2021-09-09 13:15] LABS: BASO # 0.1 10^3/uL (0.0-0.2); BASO % 0.5 % (0.0-1.0); EOS # 0.4 10^3/uL (0.0-0.5); EOS % 4.5 % (0.0-3.0); HEMATOCRIT 45.6 % (36.0-47.0); HEMOGLOBIN 15.4 g/dl (12.0-15.5); LYMPH # 2.5 10^3/uL (1.5-5.0); LYMPH % 25.8 % (24.0-44.0); MEAN CORPUSCULAR HEMOGLOBIN 30.1 pg (27.0-33.0); MEAN CORPUSCULAR HGB CONC 33.8 g/dl (32.0-36.5); MEAN CORPUSCULAR VOLUME 89.1 fl (80.0-96.0); MONO # 0.6 10^3/uL (0.0-0.8); MONO % 5.8 % (2.0-8.0); NEUTROPHILS # 6.1 10^3/uL (1.5-8.5); NEUTROPHILS % 63.1 % (36.0-66.0); PLATELET COUNT, AUTOMATED 300 10^3/uL (150-450); RED BLOOD COUNT 5.12 10^6/uL (4.00-5.40); WHITE BLOOD COUNT 9.6 10^3/uL (4.0-10.0)
[2021-09-09 14:29] LABS: ALBUMIN 4.1 GM/DL (3.2-5.2); ALT/SGPT 27 U/L (12-78); BILIRUBIN,TOTAL 0.5 MG/DL (0.2-1.0); BLOOD UREA NITROGEN 15 MG/DL (7-18); CALCIUM LEVEL 9.6 MG/DL (8.8-10.2); CARBON DIOXIDE LEVEL 30 MEQ/L (21-32); CHLORIDE LEVEL 103 MEQ/L (98-107); CHOLESTEROL LEVEL 177 MG/DL (<200); CHOLESTEROL RISK RATIO 3.218 (<5); CREATININE FOR GFR 0.79 MG/DL (0.55-1.30); GLOMERULAR FILTRATION RATE > 60.0 (>39); GLUCOSE, FASTING 101 MG/DL (70-100); HDL CHOLESTEROL 55 MG/DL (>40); LDL CHOLESTEROL 101 MG/DL (<100); NON-HDL-C 122 MG/DL; POTASSIUM SERUM 4.4 MEQ/L (3.5-5.1); SODIUM LEVEL 139 MEQ/L (136-145); TOTAL 25(OH) VITAMIN D 40.7 NG/ML (30.0-100.0); TOTAL PROTEIN 7.5 GM/DL (6.4-8.2); TRIGLYCERIDES LEVEL 103 MG/DL (<150)
== END ==
LOC: M SFHCADAM 07:56
PROVIDERS: ATTEND Physician Assistant Medical
DX: E78.2 Mixed hyperlipidemia (principal); G89.29 Other chronic pain; M54.6 Pain in thoracic spine

== ENCOUNTER → 2021-10-03 | Outpatient (CLI) | payer MEDICARE | LOC: M CARPUL 10:38 | PROVIDERS: ATTEND Physician Assistant Medical | DX: I10 Essential (primary) hypertension (principal); R60.1 Generalized edema; I35.8 Other nonrheumatic aortic valve disorders ==

== ENCOUNTER → 2021-11-15 | Outpatient (CLI) | payer MEDICARE | LOC: M WHC 09-24 07:11 | PROVIDERS: ATTEND Physician Assistant Medical | DX: Z12.31 Encounter for screening mammogram for malignant neoplasm of breast (principal); Z80.3 Family history of malignant neoplasm of breast ==

== ENCOUNTER → 2022-10-07 | Outpatient (REF) | payer OTHER ==
[2022-10-07 13:05] LABS: ALBUMIN 4.3 G/DL (3.2-5.2); ALKALINE PHOSPHATASE 72 U/L (46-116); ALT/SGPT 26 U/L (7.0-40); AST/SGOT 22 U/L (<34); BILIRUBIN,TOTAL 0.5 MG/DL (0.3-1.2); BLOOD UREA NITROGEN 15 MG/DL (9-23); CALCIUM LEVEL 9.6 MG/DL (8.3-10.6); CARBON DIOXIDE LEVEL 33 MMOL/L (20-31); CHLORIDE LEVEL 103 MMOL/L (98-107); CHOLESTEROL LEVEL 172 MG/DL (<200); CHOLESTEROL RISK RATIO 3.26 (<5); CREATININE FOR GFR 0.61 MG/DL (0.55-1.30); GLOMERULAR FILTRATION RATE > 60.0 (>39); GLUCOSE, FASTING 102 MG/DL (74-106); HDL CHOLESTEROL 52.6 MG/DL (>40); NON-HDL-C 119.4 MG/DL; POTASSIUM SERUM 4.8 MMOL/L (3.5-5.1); SODIUM LEVEL 142 MMOL/L (136-145); THYROID STIMULATING HORMONE 1.177 uIU/ML (0.55-4.78); TOTAL PROTEIN 7.2 G/DL (5.7-8.2); TRIGLYCERIDES LEVEL 87 MG/DL (<150)
== END ==
LOC: M SFHCADAM 09:03
PROVIDERS: ATTEND Physician Assistant Medical
DX: E78.2 Mixed hyperlipidemia (principal); I10 Essential (primary) hypertension

== ENCOUNTER → 2022-11-24 | Day surgery (SDC) | payer OTHER ==
[~2022-11-24] VITALS: Ht 152.4 cm; Wt 71.6 kg
[~2022-11-24] MED LIST changes: +CHLO25TA PO; +CYAN500T14 PO; +LIDOCAINE 2% 100MG/5ML SDV (FOR ANES.) As Ordered ONE; +NS 1,000 ML IV ONE; +VITA100093 PO; +propofoL 200 MG/20 ML VIAL As Ordered ONE
[2022-11-24 13:32] VITALS: BP 164/83; O2SAT 98
== END | disposition home or self-care (01) ==
LOC: M OPP 10:20
PROVIDERS: ATTEND Internal Medicine Gastroenterology
DX: Z86.010 Personal history of colon polyps (principal); K63.5 Polyp of colon; K64.0 First degree hemorrhoids; Z79.899 Other long term (current) drug therapy

== ENCOUNTER → 2023-04-29 | Outpatient (CLI) | payer OTHER ==
[~2023-04-29] MED LIST changes: -LIDOCAINE 2% 100MG/5ML SDV (FOR ANES.) As Ordered ONE; -NS 1,000 ML IV ONE; -propofoL 200 MG/20 ML VIAL As Ordered ONE
== END ==
LOC: M ADAMS 10:00
PROVIDERS: ATTEND Family Medicine
DX: M70.62 Trochanteric bursitis, left hip (principal)

== ENCOUNTER → 2023-10-12 | Outpatient (REF) | payer MEDICARE ==
[2023-10-12 12:51] LABS: BASO # 0.1 10^3/uL (0.0-0.2); BASO % 0.6 % (0.0-1.0); EOS # 0.4 10^3/uL (0.0-0.5); EOS % 3.8 % (0.0-3.0); HEMATOCRIT 42.9 % (36.0-47.0); HEMOGLOBIN 14.6 g/dl (12.0-15.5); LYMPH % 29.4 % (24.0-44.0); MEAN CORPUSCULAR HEMOGLOBIN 31.1 pg (27.0-33.0); MEAN CORPUSCULAR VOLUME 91.5 fl (80.0-96.0); MONO # 0.6 10^3/uL (0.0-0.8); MONO % 5.7 % (2.0-8.0); NEUTROPHILS % 60.3 % (36.0-66.0); PLATELET COUNT, AUTOMATED 294 10^3/uL (150-450); RED BLOOD COUNT 4.69 10^6/uL (4.00-5.40)
[2023-10-12 12:58] LABS: ALBUMIN 3.9 G/DL (3.2-5.2); ALKALINE PHOSPHATASE 74 U/L (46-116); ALT/SGPT 27 U/L (7.0-40); AST/SGOT 20 U/L (<34); BILIRUBIN,TOTAL 0.6 MG/DL (0.3-1.2); BLOOD UREA NITROGEN 19 MG/DL (9-23); CALCIUM LEVEL 9.4 MG/DL (8.3-10.6); CARBON DIOXIDE LEVEL 31 MMOL/L (20-31); CHLORIDE LEVEL 101 MMOL/L (98-107); CHOLESTEROL LEVEL 257 MG/DL (<200); CHOLESTEROL RISK RATIO 4.68 (<5); CREATININE FOR GFR 0.66 MG/DL (0.55-1.30); GLOMERULAR FILTRATION RATE > 60.0 (>39); GLUCOSE, FASTING 100 MG/DL (74-106); HDL CHOLESTEROL 54.9 MG/DL (>40); LDL CHOLESTEROL 180.1 MG/DL (<100); NON-HDL-C 202.1 MG/DL; POTASSIUM SERUM 3.9 MMOL/L (3.5-5.1); SODIUM LEVEL 137 MMOL/L (136-145); TOTAL PROTEIN 6.8 G/DL (5.7-8.2); TRIGLYCERIDES LEVEL 110 MG/DL (<150)
[2023-10-12 13:00] LABS: THYROID STIMULATING HORMONE 1.306 uIU/ML (0.55-4.78); TOTAL 25(OH) VITAMIN D 37.2 NG/ML (20.0-100.0)
[2023-10-12 13:14] LABS: CREATININE, URINE 14.4 MG/DL; MALB URINE SIEMENS < 3.0 MG/L; MAU/CREAT RATIO 20.8 MCG/MG (0.0-30.0)
[2023-10-12 13:19] LABS: HEMOGLOBIN A1c 5.3 % (4.0-6.0)
== END ==
LOC: M SFHCADAM 07:59
PROVIDERS: ATTEND Physician Assistant Medical
DX: I10 Essential (primary) hypertension (principal); E78.2 Mixed hyperlipidemia; R73.01 Impaired fasting glucose; Z79.899 Other long term (current) drug therapy

== ENCOUNTER → 2023-10-14 | Outpatient (REF) | payer MEDICARE ==
[2023-10-14 14:13] LABS: APPEARANCE, URINE CLEAR (CLEAR); BACTERIA, URINE AUTO NEGATIVE (NEGATIVE); BILIRUBIN, URINE AUTO NEGATIVE (NEGATIVE); BLOOD, URINE BLOOD 1+ (NEGATIVE); COLOR, URINE YELLOW (YELLOW); GLUCOSE, URINE (UA) AUTO NEGATIVE (NEGATIVE); KETONE, URINE AUTO NEGATIVE (NEGATIVE); LEUKOCYTE ESTERASE, URINE AUTO NEGATIVE (NEGATIVE); NITRITE, URINE AUTO NEGATIVE (NEGATIVE); PROTEIN, URINE AUTO NEGATIVE (NEGATIVE); RBC, URINE AUTO 0 /HPF (0-3); SPECIFIC GRAVITY URINE AUTO 1.016 (1.002-1.035); SQUAMOUS EPITHELIAL CELL UR AU 1 /HPF (0-6); UROBILINOGEN, URINE AUTO 0.2 mg/dL (0.0-2.0); WBC, URINE AUTO 0 /HPF (0-3)
== END ==
LOC: M SFHCADAM 09:48
PROVIDERS: ATTEND Physician Assistant Medical
DX: R39.15 Urgency of urination (principal)

== ENCOUNTER → 2023-10-30 | Outpatient (CLI) | payer MEDICARE | LOC: M WHC 11:53 | PROVIDERS: ATTEND Physician Assistant Medical | DX: R39.15 Urgency of urination (principal) ==

== ENCOUNTER → 2023-11-04 | Outpatient (CLI) | payer MEDICARE | LOC: M WHC 07:03 | PROVIDERS: ATTEND Physician Assistant Medical | DX: Z12.31 Encounter for screening mammogram for malignant neoplasm of breast (principal); R92.333 Mammographic heterogeneous density, bilateral breasts; Z80.3 Family history of malignant neoplasm of breast ==

== ENCOUNTER → 2024-04-19 | Outpatient (REF) | payer MEDICARE ==
[2024-04-19 13:28] LABS: ALBUMIN 3.9 G/DL (3.2-5.2); ALKALINE PHOSPHATASE 69 U/L (35-104); ALT/SGPT 18 U/L (7.0-40); AST/SGOT 13 U/L (<34); BILIRUBIN,TOTAL 0.4 MG/DL (0.3-1.2); BLOOD UREA NITROGEN 13 MG/DL (9-23); CALCIUM LEVEL 9.5 MG/DL (8.3-10.6); CARBON DIOXIDE LEVEL 33 MMOL/L (20-31); CHLORIDE LEVEL 106 MMOL/L (98-107); CHOLESTEROL LEVEL 155 MG/DL (<200); CHOLESTEROL RISK RATIO 2.98 (<5); CREATININE FOR GFR 0.63 MG/DL (0.55-1.30); GLOMERULAR FILTRATION RATE > 60.0 (>39); GLUCOSE, FASTING 100 MG/DL (74-106); HDL CHOLESTEROL 51.9 MG/DL (>40); LDL CHOLESTEROL 69.9 MG/DL (<100); NON-HDL-C 103.1 MG/DL; SODIUM LEVEL 142 MMOL/L (136-145); TOTAL PROTEIN 6.9 G/DL (5.7-8.2); TRIGLYCERIDES LEVEL 166 MG/DL (<150)
[2024-04-19 13:54] LABS: HEMOGLOBIN A1c 5.4 % (4.0-6.0)
== END ==
LOC: M SFHCADAM 09:49
PROVIDERS: ATTEND Physician Assistant Medical
DX: E78.2 Mixed hyperlipidemia (principal); R73.01 Impaired fasting glucose

== ENCOUNTER → 2024-05-10 | Outpatient (CLI) | payer MEDICARE | LOC: M CARPUL 08:56 | PROVIDERS: ATTEND Physician Assistant Medical | DX: I50.32 Chronic diastolic (congestive) heart failure (principal) ==

== ENCOUNTER → 2024-12-30 | Outpatient (CLI) | payer MEDICARE | LOC: M WHC 09:01 | PROVIDERS: ATTEND Physician Assistant Medical | DX: Z12.31 Encounter for screening mammogram for malignant neoplasm of breast (principal); M85.851 Other specified disorders of bone density and structure, right thigh; M85.852 Other specified disorders of bone density and structure, left thigh ==

== ENCOUNTER → 2025-02-07 | Outpatient (CLI) | payer MEDICARE | LOC: M PLAIMG 12:28 | PROVIDERS: ATTEND Family Medicine | DX: M51.370 Other intervertebral disc degeneration, lumbosacral region with discogenic back pain only (principal) ==